=== PATIENT | female | born 1950 | race American Indian/Alaskan Native ===

== ENCOUNTER 2017-08-15 00:06 | Emergency (ER) | payer MEDICARE ==
[2017-08-15 00:06] VITALS: BMI 24.2
[2017-08-15 00:15] VITALS: PULSE 101; O2SAT 98
--- NOTE | 2017-08-15 01:07 | C.PDOC ---
History Of Present Illness 66yo female, presents to ER with complaints of chest pain and shortness of breath. Patient noted to be eating comfortably in room. She is also complaining of right ankle pain and swelling. No fever, chills, abdominal pain, numbness. No other complaints. Time Seen by Provider: 08/15/17 00:50 Chief Complaint (Nursing): Shortness Of Breath History Per: Patient History/Exam Limitations: no limitations Past Medical History Reviewed: Historical Data, Nursing Documentation, Vital Signs Vital Signs: Last Vital Signs Temp 98 F 08/15/17 00:09 Pulse 101 H 08/15/17 00:09 Resp 24 08/15/17 00:18 BP 114/76 08/15/17 00:09 Pulse Ox 98 08/15/17 03:16 - Medical History PMH: Anxiety, Arthritis, Asthma, Back Problems, Bronchitis, CAD, COPD, Dementia , Diabetes, Gastrointestinal Ulcer, HTN, Hyperthyroidism, Migraine, Pneumonia (), Sleep Apnea, TIA Denies: Chronic Kidney Disease Surgical History: Appendectomy (19 years old), Coronary Stent (1) - [facility] Procedures INSERTION OF TOTALLY IMPLANTABLE VASC ACCESS DEVIC (07/27/14) INTRODUCE OF OTH THERAP SUBST INTO RESP TRACT, VIA OPENING (06/19/16) LEFT HEART CARDIAC CATH (07/13/14) LT HEART ANGIOCARDIOGRAM (07/13/14) Family History: States: Unknown Family Hx - Social History Hx Tobacco Use: No Hx Alcohol Use: No Hx Substance Use: No - Immunization History Hx Tetanus Toxoid Vaccination: No Hx Influenza Vaccination: No Hx Pneumococcal Vaccination: Yes Review Of Systems Except As Marked, All Systems Reviewed And Found Negative. Constitutional: Negative for: Fever, Chills Cardiovascular: Positive for: Chest Pain Respiratory: Positive for: Shortness of Breath Gastrointestinal: Negative for: Abdominal Pain Musculoskeletal: Positive for: Foot Pain (ankle) Physical Exam - Physical Exam Appears: Non-toxic, No Acute Distress Skin: Normal Color, Warm, Dry Head: Atraumatic, Normacephalic Eye(s): bilateral: Normal Inspection Neck: Normal ROM, Supple Chest: Symmetrical Cardiovascular: Rhythm Regular, No Murmur Respiratory: Rales (occasional basal rales), No Wheezing Extremity: Normal ROM, No Tenderness, No Deformity, No Swelling Neurological/Psych: Oriented x3 ED Course And Treatment - Laboratory Results Result Diagrams: 08/15/17 01:15 08/15/17 01:15 ECG: Interpreted By Me, Viewed By Me ECG Interpretation: No Acute Changes Interpretation Of ECG: NSR, no acute changes, normal tracings Rate From EC O2 Sat by Pulse Oximetry: 98 (RA) Pulse Ox Interpretation: Normal - Radiology CXR: Interpreted by Me CXR Interpretation: Yes: No Acute Disease, Other (inc. broncho-vascularmarkings) . No: Infiltrates Medical Decision Making Medical Decision Making: Plan: -- Labs -- EKG -- CXR Time: 0300 EXAM: XR Chest, 2 Views CLINICAL HISTORY: 66 years old, female; Pain; Chest pain and other: Cough; Patient HX: 01-08-16; Additional info: SOB TECHNIQUE: Frontal and lateral views of the chest. COMPARISON: CR - CHEST TWO VIEWS (PA/LAT) 2016-01-08 15:45 FINDINGS: Lungs: No consolidation. Pleural space: No pleural effusion. No pneumothorax. Heart: No cardiomegaly. Mediastinum: Mild tortuosity of thoracic aorta. Bones/joints: No acute fracture. Tubes, lines and devices: Central venous catheter with tip projected over SVC. IMPRESSION: 1. No definite acute cardiopulmonary disease. If symptoms persist, consider CT for further evaluation. 2. Incidental/non-acute findings are described above. Disposition Counseled Patient/Family Regarding: Diagnosis - Disposition Referrals: [facility] [Outside] Disposition: HOME/ ROUTINE Disposition Time: 03:13 Condition: STABLE Prescriptions: Albuterol Sulfate [Proventil Hfa] 0.09 mg IH Q6 #1 spray Azithromycin [Zithromax] 250 mg PO DAILY #5 tab Forms: [employer] (Ecuadorean) - Clinical Impression Clinical Impression: Bronchitis, Asthma - Scribe Statement The provider has reviewed the documentation as recorded by the Scribe (Evelin Lares) Provider Attestation: All medical record entries made by the Scribe were at my direction and personally dictated by me. I have reviewed the chart and agree that the record accurately reflects my personal performance of the history, physical exam, medical decision making, and the department course for this patient. I have also personally directed, reviewed, and agree with the discharge instructions and disposition.
[2017-08-15] MEDS ORDERED: Promethazine/Cod 6.25mg-10mg/5ml Syr UD ONE (01:19)
[2017-08-15] MEDS ORDERED: Promethazine/Cod 6.25mg-10mg/5ml Syr UD PO STA (01:21)
[2017-08-15 01:23] LABS: BASO # 0.1 K/uL (0.0-0.2); BASO % 0.8 % (0.0-2.0); EOS # 0.1 K/uL (0.0-0.7); EOS % 0.8 % (0.0-4.0); HEMOGLOBIN 11.3 g/dL (11.0-16.0); LYMPH % 18.1 % (20.0-40.0); MEAN CELL VOLUME 87.6 fL (81.0-99.0); MEAN CORPUSCULAR HEMOGLOBIN 29.4 pg (27.0-31.0); MEAN CORPUSCULAR HGB CONC 33.6 g/dL (33.0-37.0); MEAN PLATELET VOLUME 8.8 fL (7.2-11.7); MONO # 0.8 K/uL (0.0-0.8); MONO % 7.8 % (0.0-10.0); NEUT # 7.9 K/uL (1.8-7.0); NEUT % 72.5 % (50.0-75.0); RBC 3.83 Mil/uL (3.80-5.20); RED CELL DISTRIBUTION WIDTH 14.3 % (11.5-14.5); WHITE BLOOD COUNT 10.8 K/uL (4.8-10.8)
[2017-08-15 01:44] LABS: ALB/GLOB RATIO 1.2 (1.0-2.1); ALBUMIN 3.6 g/dL (3.5-5.0); ALT/SGPT 53 U/L (9-52); AST/SGOT 34 U/L (14-36); BLOOD UREA NITROGEN 7 mg/dL (7-17); CALCIUM 8.8 mg/dl (8.6-10.4); GFR AFRICAN-AMERICAN > 60; GFR NON-AFRICAN AMERICAN > 60
--- NOTE | 2017-08-15 03:01 | RAD ---
EXAM: XR Chest, 2 Views CLINICAL HISTORY: 66 years old, female; Pain; Chest pain and other: Cough; Patient HX: 01-08-16; Additional info: SOB TECHNIQUE: Frontal and lateral views of the chest. COMPARISON: CR - CHEST TWO VIEWS (PA/LAT) 2016-01-08 15:45 FINDINGS: Lungs: No consolidation. Pleural space: No pleural effusion. No pneumothorax. Heart: No cardiomegaly. Mediastinum: Mild tortuosity of thoracic aorta. Bones/joints: No acute fracture. Tubes, lines and devices: Central venous catheter with tip projected over SVC. IMPRESSION: 1. No definite acute cardiopulmonary disease. If symptoms persist, consider CT for further evaluation. 2. Incidental/non-acute findings are described above.
[2017-08-15 03:34] VITALS: BP 120/70; RESP 20; TEMP 98.1
[2017-08-15] MEDS ORDERED: Sucralfate 1 gm/10 ml Oral Susp UD PO STA (03:37)
[2017-08-15] MEDS ORDERED: Sucralfate 1 gm/10 ml Oral Susp UD ONE (03:48)
[2017-08-15 03:54] LABS: SQUAMOUS EPITHIAL 2 /hpf (0-5); URINE BACTERIA FEW (<OCC); URINE BILIRUBIN NEGATIVE (NEGATIVE); URINE CLARITY Hazy (Clear); URINE COLOR Colorless (YELLOW); URINE GLUCOSE (UA) 3+ mg/dL (Normal); URINE LEUKOCYTE ESTERASE 3+ Leu/uL (Negative); URINE NITRATE NEGATIVE (NEGATIVE); URINE PROTEIN NEGATIVE (NEGATIVE); URINE UROBILINOGEN NORMAL mg/dL (0.2-1.0)
[2017-08-15 03:56] LABS: URINE BLOOD 1+ (NEGATIVE)
== END 2017-08-15 03:56 | disposition home or self-care (01) ==
LOC: C.ER 00:06
DX: J45.909 Unspecified asthma, uncomplicated (principal); I10 Essential (primary) hypertension; E11.9 Type 2 diabetes mellitus without complications; Z87.01 Personal history of pneumonia (recurrent); Z87.891 Personal history of nicotine dependence

== ENCOUNTER 2018-08-23 14:41 | Observation (INO) | payer MEDICARE, MEDICAID ==
[2018-08-23 14:41] VITALS: BMI 24.2
--- NOTE | 2018-08-23 15:59 | C.PDOC ---
History Of Present Illness 67 y/o female, with history of IDDM, comes in complaining of bilateral leg pain for the past 5 days. States she's had this pain before that would usually last 15 minutes but this one lasted for 2 hours. Patient reports she was seen by Dr. Schumacher for the leg pain and got an arterial doppler done on 08/18/18 with no known results. She states she takes her medications for her diabetes. Reports taking flexeril for the pain with no relief. Patient also complains of palpitations for the last 3 days but denies any chest pain or SOB. Also has history of COPD, CAD with stent, unknown cancer, neuropathy, and asthma. Time Seen by Provider: 08/23/18 15:24 Chief Complaint (Nursing): Palpitations History Per: Patient History/Exam Limitations: no limitations Onset/Duration Of Symptoms: Days Current Symptoms Are (Timing): Still Present Past Medical History Reviewed: Historical Data, Nursing Documentation, Vital Signs Vital Signs: Last Vital Signs Temp 98.5 F 08/23/18 14:57 Pulse 105 H 08/23/18 14:57 Resp 20 08/23/18 14:57 BP 118/72 08/23/18 14:57 Pulse Ox 98 08/23/18 14:57 - Medical History PMH: Anxiety, Arthritis, Asthma, Back Problems, Bronchitis, CAD, COPD, Dementia, Diabetes, Gastrointestinal Ulcer, HTN (pt denies), Hyperthyroidism, Hypothyroidism, Migraine, Pneumonia, Sleep Apnea, TIA Denies: Chronic Kidney Disease Surgical History: Appendectomy, Coronary Stent (1) - [facility] Procedures INSERTION OF TOTALLY IMPLANTABLE VASC ACCESS DEVIC (07/27/14) INTRODUCE OF OTH THERAP SUBST INTO RESP TRACT, VIA OPENING (06/19/16) LEFT HEART CARDIAC CATH (07/13/14) LT HEART ANGIOCARDIOGRAM (07/13/14) Family History: States: No Known Family Hx - Social History Hx Tobacco Use: No Hx Alcohol Use: No Hx Substance Use: No - Immunization History Hx Tetanus Toxoid Vaccination: (unk) Hx Influenza Vaccination: No Hx Pneumococcal Vaccination: Yes Review Of Systems Constitutional: Negative for: Fever, Chills Cardiovascular: Positive for: Palpitations. Negative for: Chest Pain Respiratory: Negative for: Shortness of Breath Gastrointestinal: Negative for: Nausea, Vomiting, Diarrhea Genitourinary: Negative for: Dysuria, Hematuria Musculoskeletal: Positive for: Leg Pain (Right). Negative for: Back Pain Neurological: Negative for: Weakness, Numbness Physical Exam - Physical Exam Appears: Non-toxic, No Acute Distress Skin: Warm, Dry Head: Atraumatic, Normacephalic Eye(s): bilateral: PERRL, EOMI Oral Mucosa: Moist Neck: Supple Cardiovascular: Rhythm Regular, No Murmur Respiratory: No Rales, No Rhonchi, No Wheezing, Other (bibasilar crackles) Gastrointestinal/Abdominal: Soft, No Tenderness Extremity: Normal ROM (full ROM of both legs), Tenderness (tenderness to bilateral upper thighs), No Pedal Edema, No Calf Tenderness, No Swelling, Other (no redness or warmth of thighs) Pulses: Left Femoral: Normal, Right Femoral: Normal, Left Dorsalis Pedis: N ormal, Right Dorsalis Pedis: Normal Neurological/Psych: Oriented x3, Normal Speech, Normal Cognition, Normal Motor, Normal Sensation ED Course And Treatment - Laboratory Results Result Diagrams: 08/23/18 16:14 08/23/18 16:14 ECG: Interpreted By Me, Viewed By Me ECG Rhythm: Sinus Rhythm Interpretation Of ECG: Voltage criteria for left ventricular hypertrophy. Rate From EC O2 Sat by Pulse Oximetry: 98 (RA) Pulse Ox Interpretation: Normal - Other Rad CXR X-Ray: Read By Radiologist Interpretation: IMPRESSION: No active disease. Medical Decision Making Medical Decision Making: Plan: --EKG --Labs --Chest XR --UA Patient intermittently moaning and crying in pain, laying comfortably in stretcher and in no distress. [id number] Silvia Schumacher to call ED. [address] Schumacher; pt may be admitted to Dr Rian Lemons discussedf with Rian Lemons, will admit pt to his service Disposition Discussed With : Jg Lemons Doctor Will See Patient In The: Hospital - Disposition Disposition: HOSPITALIZED Disposition Time: 18:26 Condition: GOOD Forms: [facility] (Cook Islander) - Clinical Impression Clinical Impression: Leg pain, bilateral, Decreased ambulation status - PA / ART GILDER / Resident Statement MD/DO has reviewed & agrees with the documentation as recorded. - Scribe Statement The provider has reviewed the documentation as recorded by the Scribe Lisa Daus All medical record entries made by the Scribe were at my direction and personally dictated by me. I have reviewed the chart and agree that the record accurately reflects my personal performance of the history, physical exam, medical decision making, and the department course for this patient. I have also personally directed, reviewed, and agree with the discharge instructions and disposition.
[2018-08-23 16:23] LABS: BASO # 0.1 K/uL (0.0-0.2); BASO % 0.4 % (0.0-2.0); HEMOGLOBIN 13.6 g/dL (11.0-16.0); LYMPH # 4.5 K/uL (1.0-4.3); LYMPH % 37.5 % (20.0-40.0); MEAN CELL VOLUME 87.5 fL (81.0-99.0); MEAN CORPUSCULAR HEMOGLOBIN 28.7 pg (27.0-31.0); MEAN CORPUSCULAR HGB CONC 32.7 g/dL (33.0-37.0); MEAN PLATELET VOLUME 10.5 fL (7.2-11.7); MONO # 1.3 K/uL (0.0-0.8); NEUT # 6.1 K/uL (1.8-7.0); NEUT % 51.1 % (50.0-75.0); NRBC % 0.1 % (0.0-2.0); RBC 4.76 Mil/uL (3.80-5.20); RED CELL DISTRIBUTION WIDTH 12.6 % (11.5-14.5); WHITE BLOOD COUNT 11.9 K/uL (4.8-10.8)
[2018-08-23 16:30] LABS: ALB/GLOB RATIO 1.5 (1.0-2.1); ALBUMIN 4.1 g/dL (3.5-5.0); ALT/SGPT 18 U/L (9-52); AST/SGOT 22 U/L (14-36); BLOOD UREA NITROGEN 17 mg/dL (7-17); CALCIUM 8.8 mg/dl (8.6-10.4); GFR NON-AFRICAN AMERICAN > 60
[2018-08-23 16:36] LABS: INR 1.2; PROTHROMBIN TIME 13.2 SECONDS (9.7-12.2)
[2018-08-23 16:42] LABS: B-TYPE NATRIURETIC PEPTIDE 15.9 pg/mL (0-900)
[2018-08-23 16:48] LABS: D DIMER < 200 ng/mlDDU (0-243)
[2018-08-23] MEDS ORDERED: Potassium Chloride 20 mEq ER Tab PO STA (17:06)
[2018-08-23] MEDS ORDERED: Potassium Chloride 20 mEq ER Tab PO ONE (17:18)
--- NOTE | 2018-08-23 17:27 | RAD ---
Date of service: 08/23/2018 HISTORY: SOB COMPARISON: Comparison is made with 04/14/2018 TECHNIQUE: Chest PA and lateral FINDINGS: LUNGS: No evidence of new infiltrate or consolidation in the lungs. PLEURA: No significant pleural effusion identified. No pneumothorax apparent. CARDIOVASCULAR: No aortic atherosclerotic calcification present. Normal cardiac size. No pulmonary vascular congestion. OSSEOUS STRUCTURES: No significant abnormalities. VISUALIZED UPPER ABDOMEN: Normal. OTHER FINDINGS: Right-sided Infusaport is seen in place. IMPRESSION: No active disease.
[2018-08-23 18:30] LABS: INR 1.2; PROTHROMBIN TIME 12.6 SECONDS (9.7-12.2)
--- NOTE | 2018-08-23 19:30 | CP.PCM.HP ---
Past Patient History - Infectious Disease Hx of Infectious Diseases: None - Past Medical History & Family History Past Medical History?: Yes - Past Social History Smoking Status: Former Smoker - CARDIAC Hx Hypertension: Yes (pt denies) - PULMONARY Hx Asthma: Yes Hx Bronchitis: Yes Hx Chronic Obstructive Pulmonary Disease (COPD): Yes Hx Pneumonia: Yes Hx Sleep Apnea: Yes - NEUROLOGICAL Hx Dementia: Yes Hx Migraine: Yes Hx Transient Ischemic Attacks (TIA): Yes - HEENT Hx HEENT Problems: Yes Hx Cataracts: Yes - RENAL Hx Chronic Kidney Disease: No - ENDOCRINE/METABOLIC Hx Hyperthyroidism: Yes Hx Hypothyroidism: Yes - HEMATOLOGICAL/ONCOLOGICAL Hx Blood Disorders: Yes Hx Cancer: Yes Hx Leukemia: Yes Other/Comment: "I have cancer in by blood. They don't know what kind." - INTEGUMENTARY Hx Dermatological Problems: No - MUSCULOSKELETAL/RHEUMATOLOGICAL Hx Arthritis: Yes - GASTROINTESTINAL Other/Comment: Hiatal hernia - GENITOURINARY/GYNECOLOGICAL Hx Genitourinary Disorders: No - PSYCHIATRIC Hx Anxiety: Yes Hx Substance Use: No - SURGICAL HISTORY Hx Appendectomy: Yes Hx Coronary Stent: Yes (1) - ANESTHESIA Hx Anesthesia: Yes Hx Anesthesia Reactions: No Hx Malignant Hyperthermia: No Meds Allergies/Adverse Reactions: Allergies Allergy/AdvReac Type Severity Reaction Status Date / Time No Known Allergies Allergy Verified 08/23/18 15:01 Physical Exam - Constitutional Appears: Well - Head Exam Head Exam: ATRAUMATIC, NORMAL INSPECTION, NORMOCEPHALIC - Eye Exam Eye Exam: EOMI, Normal appearance, PERRL Pupil Exam: NORMAL ACCOMODATION, PERRL - ENT Exam ENT Exam: Mucous Membranes Moist, Normal Exam - Neck Exam Neck exam: Positive for: Normal Inspection - Respiratory Exam Respiratory Exam: Decreased Breath Sounds - Cardiovascular Exam Cardiovascular Exam: REGULAR RHYTHM, +S1, +S2 - GI/Abdominal Exam GI & Abdominal Exam: Diminished Bowel Sounds, Soft - Rectal Exam Rectal Exam: Deferred Results - Vital Signs Recent Vital Signs: Last Vital Signs Temp 97.6 F 08/23/18 18:08 Pulse 80 08/23/18 18:08 Resp 16 08/23/18 18:08 BP 111/69 08/23/18 18:08 Pulse Ox 98 08/23/18 18:28 - Labs Result Diagrams: 08/23/18 16:14 08/23/18 16:14 Labs: Laboratory Results - last 24 hr 08/23/18 08/23/18 08/23/18 16:14 16:14 16:14 WBC 11.9 H RBC 4.76 Hgb 13.6 Hct 41.6 MCV 87.5 MCH 28.7 MCHC 32.7 L RDW 12.6 Plt Count 222 MPV 10.5 Neut % (Auto) 51.1 Lymph % (Auto) 37.5 Geary % (Auto) 11.0 H Eos % (Auto) 0.0 Baso % (Auto) 0.4 Neut # (Auto) 6.1 Lymph # (Auto) 4.5 H Geary # (Auto) 1.3 H Eos # (Auto) 0.0 Baso # (Auto) 0.1 PT 13.2 H INR 1.2 APTT Cancelled D-Dimer, Quantitative < 200 Sodium 135 Potassium 3.2 L Chloride 98 Carbon Dioxide 31 H Anion Gap 9 L BUN 17 Creatinine 0.4 L Est GFR ( Amer) > 60 Est GFR (Non-Af Amer) > 60 Random Glucose 71 D Calcium 8.8 Magnesium Total Bilirubin 0.3 AST 22 ALT 18 Alkaline Phosphatase 93 Total Creatine Kinase Troponin I < 0.0120 NT-Pro-B Natriuret Pep 15.9 Total Protein 6.8 Albumin 4.1 Globulin 2.7 Albumin/Globulin Ratio 1.5 TSH 3rd Generation 0.90 08/23/18 08/23/18 08/23/18 17:03 17:24 18:20 WBC RBC Hgb Hct MCV MCH MCHC RDW Plt Count MPV Neut % (Auto) Lymph % (Auto) Geary % (Auto) Eos % (Auto) Baso % (Auto) Neut # (Auto) Lymph # (Auto) Geary # (Auto) Eos # (Auto) Baso # (Auto) PT 12.6 H INR 1.2 APTT 135 H* 61 H D D-Dimer, Quantitative Sodium Potassium Chloride Carbon Dioxide Anion Gap BUN Creatinine Est GFR ( Amer) Est GFR (Non-Af Amer) Random Glucose Calcium Magnesium 1.9 Total Bilirubin AST ALT Alkaline Phosphatase Total Creatine Kinase 122 Troponin I NT-Pro-B Natriuret Pep Total Protein Albumin Globulin Albumin/Globulin Ratio TSH 3rd Generation
[2018-08-23] MEDS: (Novolog) Insulin Aspart, Recombinant 100 u/ml 10 ml vial SC SCH (21:49)
[2018-08-24] MEDS: Albuterol 0.083% Inhal Sol (2.5 mg/3 mL) UD INH SCH ×5 (00:12→23:44)
[2018-08-24 00:58] VITALS: RESP 20
[2018-08-24] MEDS: HYDROmorphone 0.5 mg/0.5 ml ISec IVP PRN ×2 (02:32→14:07)
[2018-08-24 02:50] LABS: SQUAMOUS EPITHIAL 1 /hpf (0-5); URINE BACTERIA RARE (<OCC); URINE BILIRUBIN NEGATIVE (NEGATIVE); URINE BLOOD NEGATIVE (NEGATIVE); URINE CLARITY Hazy (Clear); URINE COLOR Yellow (YELLOW); URINE GLUCOSE (UA) 3+ mg/dL (Normal); URINE LEUKOCYTE ESTERASE 1+ Leu/uL (Negative); URINE PROTEIN NEGATIVE (NEGATIVE); URINE UROBILINOGEN NORMAL mg/dL (0.2-1.0)
[2018-08-24 07:49] LABS: INR 1.1; PROTHROMBIN TIME 12.3 SECONDS (9.7-12.2)
[2018-08-24 07:55] LABS: ALB/GLOB RATIO 1.3 (1.0-2.1); ALBUMIN 3.3 g/dL (3.5-5.0); ALT/SGPT 22 U/L (9-52); AST/SGOT 28 U/L (14-36); BLOOD UREA NITROGEN 17 mg/dL (7-17); CALCIUM 8.2 mg/dl (8.6-10.4); GFR NON-AFRICAN AMERICAN > 60
[2018-08-24 08:07] LABS: BASO % 0.3 % (0.0-2.0); LYMPH # 2.7 K/uL (1.0-4.3); LYMPH % 36.5 % (20.0-40.0); MEAN CELL VOLUME 88.8 fL (81.0-99.0); MEAN CORPUSCULAR HEMOGLOBIN 28.8 pg (27.0-31.0); MEAN CORPUSCULAR HGB CONC 32.4 g/dL (33.0-37.0); MEAN PLATELET VOLUME 11.3 fL (7.2-11.7); MONO # 0.7 K/uL (0.0-0.8); MONO % 8.8 % (0.0-10.0); NEUT # 4.1 K/uL (1.8-7.0); NEUT % 54.4 % (50.0-75.0); RBC 4.52 Mil/uL (3.80-5.20); RED CELL DISTRIBUTION WIDTH 12.5 % (11.5-14.5); WHITE BLOOD COUNT 7.5 K/uL (4.8-10.8)
[2018-08-24] MEDS: (Novolog) Insulin Aspart, Recombinant 100 u/ml 10 ml vial SC SCH ×4 (08:29→21:28)
[2018-08-24] MEDS: Pantoprazole 40 mg EC Tab PO SCH (10:01)
[2018-08-24] MEDS: Enoxaparin 40 mg Syringe SC SCH (10:02)
[2018-08-24] MEDS: Magnesium Oxide 400 mg Tab UD PO SCH (15:03)
--- NOTE | 2018-08-24 16:28 | CON ---
DATE: 08/24/2018 NEUROLOGY CONSULTATION CHIEF COMPLAINT: Bilateral leg pain. HISTORY OF PRESENT ILLNESS: This is a 67-year-old woman with history of insulin dependent diabetes mellitus, history of severe sensorimotor peripheral neuropathy, came in for complaint of bilateral leg pain for the past five days. She states that the pain was intense and lasting for a few hours. She got arterial Doppler done on 08/18/[address] Schumacher, but unknown the results. Currently she is doing much better. No focal weakness of lower extremities. She still has some hyperglycemic accelerations. She takes Lyrica by her neurologist Dr. Burrows 150 mg p.o. b.i.d. Cymbalta 30 mg p.o. at bedtime as an outpatient once she follows up with him. No focal weakness of lower extremities. She has evidence of neuropathy under examination. PAST MEDICAL HISTORY: History of insulin dependent diabetes mellitus, dyslipidemia and hypertension. ALLERGIES: NO KNOWN DRUG ALLERGIES. SOCIAL HISTORY: Former smoker. No illicit drug abuse or ETOH abuse. REVIEW OF SYSTEMS: A 14-point review of system is negative except for the HPI. FAMILY HISTORY: Noncontributory. LABORATORY DATA: Sodium is 135, potassium 4, chloride 102, carbon dioxide 27, BUN of 9, creatinine 0.5, random glucose 283. PHYSICAL EXAMINATION: VITAL SIGNS: Temperature 98.4, pulse rate of 89, blood pressure 122/75, respiratory rate of 20, and oxygen saturation % on room air. GENERAL: The patient is sitting up in bed. No acute distress. HEENT: Atraumatic, normocephalic, PERRLA. Extraocular muscles intact. NECK: Supple, no JVD, no adenopathy noted. LUNGS: Clear to auscultation. No adventitious sounds. HEART: S1, S2, normal rate and rhythm. No murmurs, rubs or gallops. ABDOMEN: Soft, nontender, and nondistended. Bowel sounds are present. EXTREMITIES: No clubbing, no cyanosis. Peripheral pulses 2+ felt bilaterally. NEUROLOGIC: The patient is alert, oriented to person, place, month, and year. Speech is fluent without any errors. Cranial nerves II through XII are intact. Motor exam: Moves all extremities equally. Toes are downgoing bilaterally. Sensory exam: Light touch, pinprick, proprioception and vibration are intact. DTRs are 2+ throughout both knees and ankles. Coordination and gait are deferred for now. IMPRESSION: Bilateral knee leg pain secondary to severe diabetic peripheral neuropathy, sensorimotor type. PLAN: Recommend. 1. To continue her home dose Lyrica 150 mg p.o. twice daily as given by her neurologist Dr. Burrows. 2. Consider Cymbalta in addition 20 mg p.o. h.s. once she decides as an outpatient. 3. Magnesium 400 mg p.o. daily, which will help with paresthesia of the feet and continue with current workup. Thank you for this consult. Naeem Alvarez MD
--- NOTE | 2018-08-24 20:12 | CP.PCM.PN ---
Subjective - Date & Time of Evaluation Date of Evaluation: 08/24/18 Time of Evaluation: 08:30 - Subjective Subjective: clinically same Objective - Vital Signs/Intake and Output Vital Signs (last 24 hours): Temp Pulse Resp BP Pulse Ox 98.2 F 83 20 101/62 99 08/24/18 15:00 08/24/18 15:00 08/24/18 15:00 08/24/18 15:00 08/24/18 15:00 Intake and Output: 08/24/18 08/25/18 18:59 06:59 Intake Total 480 Balance 480 - Medications Medications: Current Medications Albuterol Sulfate (Albuterol 0.083% Inhal Sharon (2.5 Mg/3 Ml) Ud) 2.5 mg INH Q4 [facility] Last Admin: 08/24/18 19:50 Dose: 2.5 mg Aspirin (Aspirin) 325 mg PO DAILY [facility] Last Admin: 08/24/18 10:01 Dose: 325 mg Clopidogrel Bisulfate (Plavix) 75 mg PO DAILY [facility] Last Admin: 08/24/18 10:01 Dose: 75 mg Cyclobenzaprine HCl (Flexeril) 10 mg PO DAILY [facility] Last Admin: 08/24/18 10:01 Dose: 10 mg Donepezil HCl (Aricept) 10 mg PO HS [facility] Last Admin: 08/23/18 21:56 Dose: 10 mg Enalapril Maleate (Vasotec) 10 mg PO BID [facility] Last Admin: 08/24/18 10:02 Dose: 10 mg Enoxaparin Sodium (Lovenox) 40 mg SC DAILY [facility] Last Admin: 08/24/18 10:02 Dose: 40 mg Hydromorphone HCl (Dilaudid) 0.5 mg IVP Q8 PRN PRN Reason: Pain, moderate (4-7) Last Admin: 08/24/18 14:07 Dose: 0.5 mg Influenza Virus Vaccine (Flucelvax Quad [id number] Syr) 60 mcg IM .ONCE ONE Stop: 08/25/18 10:01 Insulin Aspart (Novolog) 0 unit SC [facility]; Protocol Last Admin: 08/24/18 17:43 Dose: 3 units Magnesium Oxide (Mag-Ox) 400 mg PO DAILY [facility] Last Admin: 08/24/18 15:03 Dose: 400 mg Montelukast Sodium (Singulair) 10 mg PO [facility] Last Admin: 08/23/18 21:56 Dose: 10 mg Pantoprazole Sodium (Protonix Ec Tab) 40 mg PO DAILY [facility] Last Admin: 08/24/18 10:01 Dose: 40 mg Pneumococcal Polyvalent Vaccine (Pneumovax 23 Vaccine) 0.5 ml IM .ONCE ONE Stop: 08/26/18 10:01 Pregabalin (Lyrica) 75 mg PO BID [facility] Last Admin: 08/24/18 17:42 Dose: 75 mg - Labs Labs: 08/24/18 07:30 08/24/18 07:30 PT 12.3 SECONDS (9.7-12.2) H 08/24/18 07:30 INR 1.1 08/24/18 07:30 APTT 73 SECONDS (21-34) H D 08/24/18 07:30 - Constitutional Appears: Well - Head Exam Head Exam: ATRAUMATIC, NORMAL INSPECTION, NORMOCEPHALIC - Eye Exam Eye Exam: EOMI, Normal appearance, PERRL Pupil Exam: NORMAL ACCOMODATION, PERRL - ENT Exam ENT Exam: Mucous Membranes Moist, Normal Exam - Neck Exam Neck Exam: Full ROM, Normal Inspection. absent: Lymphadenopathy - Respiratory Exam Respiratory Exam: Decreased Breath Sounds - Cardiovascular Exam Cardiovascular Exam: REGULAR RHYTHM, +S1, +S2 - GI/Abdominal Exam GI & Abdominal Exam: Soft, Diminished Bowel Sounds - Rectal Exam Rectal Exam: Deferred
--- NOTE | 2018-08-24 22:40 | CP.PCM.CON ---
History of Present Illness - History of Present Illness History of Present Illness: 67 year old female with a history of tobacco abuse, chronically elevated CEA, HTN, DM complicated by peripheral neuropathy, admitted with lower extremity pain. The patient notes to chronic b/l LE pain which worsened over the last few days. She was unable to take the pain and came to the hospital. In regards to her elevated CEA, her work up included a negative PET CT scan in 2018. Her elevated CEA was felt to be related to tobacco abuse. Past medical history: tobacco abuse, chronically elevated CEA, HTN, DM complicated by peripheral neuropathy. Past surgical history: Carpel tunnel surgery Family history: Denies hematologic and oncologic problems Social history: +tobacco abuse Allergies: NKA Review of systems: All remaining review of systems including HEENT, cardiovascular, respiratory, gastrointestinal, genitourinary, musculoskeletal, dermatologic, neurologic, and psychiatric are negative unless mentioned in the HPI. Past Patient History - Infectious Disease Hx of Infectious Diseases: None - Past Medical History & Family History Past Medical History?: Yes - Past Social History Smoking Status: Former Smoker - CARDIAC Hx Hypertension: Yes (pt denies) - PULMONARY Hx Chronic Obstructive Pulmonary Disease (COPD): Yes - NEUROLOGICAL Hx Dementia: Yes Hx Migraine: Yes Hx Transient Ischemic Attacks (TIA): Yes - HEENT Hx HEENT Problems: Yes Hx Cataracts: Yes - RENAL Hx Chronic Kidney Disease: No - ENDOCRINE/METABOLIC Hx Hypothyroidism: Yes - HEMATOLOGICAL/ONCOLOGICAL Hx Blood Disorders: Yes Hx Cancer: Yes Hx Leukemia: Yes Other/Comment: "I have cancer in by blood. They don't know what kind." - INTEGUMENTARY Hx Dermatological Problems: No - MUSCULOSKELETAL/RHEUMATOLOGICAL Hx Arthritis: Yes - GASTROINTESTINAL Other/Comment: Hiatal hernia - GENITOURINARY/GYNECOLOGICAL Hx Genitourinary Disorders: No - PSYCHIATRIC Hx Anxiety: Yes Hx Substance Use: No - SURGICAL HISTORY Hx Appendectomy: Yes Hx Coronary Stent: Yes (1) - ANESTHESIA Hx Anesthesia: Yes Hx Anesthesia Reactions: No Hx Malignant Hyperthermia: No Meds Allergies/Adverse Reactions: Allergies Allergy/AdvReac Type Severity Reaction Status Date / Time No Known Allergies Allergy Verified 08/23/18 15:01 - Medications Medications: Current Medications Albuterol Sulfate (Albuterol 0.083% Inhal Sharon (2.5 Mg/3 Ml) Ud) 2.5 mg INH Q4 [facility] Last Admin: 08/24/18 19:50 Dose: 2.5 mg Aspirin (Aspirin) 325 mg PO DAILY [facility] Last Admin: 08/24/18 10:01 Dose: 325 mg Clopidogrel Bisulfate (Plavix) 75 mg PO DAILY [facility] Last Admin: 08/24/18 10:01 Dose: 75 mg Cyclobenzaprine HCl (Flexeril) 10 mg PO DAILY [facility] Last Admin: 08/24/18 10:01 Dose: 10 mg Donepezil HCl (Aricept) 10 mg PO [facility] Last Admin: 08/24/18 21:28 Dose: 10 mg Enalapril Maleate (Vasotec) 10 mg PO BID [facility] Last Admin: 08/24/18 10:02 Dose: 10 mg Enoxaparin Sodium (Lovenox) 40 mg SC DAILY [facility] Last Admin: 08/24/18 10:02 Dose: 40 mg Hydromorphone HCl (Dilaudid) 0.5 mg IVP Q8 PRN PRN Reason: Pain, moderate (4-7) Last Admin: 08/24/18 14:07 Dose: 0.5 mg Influenza Virus Vaccine (Flucelvax Quad [id number] Syr) 60 mcg IM .ONCE ONE Stop: 08/25/18 10:01 Insulin Aspart (Novolog) 0 unit SC [facility]; Protocol Last Admin: 08/24/18 21:28 Dose: Not Given Magnesium Oxide (Mag-Ox) 400 mg PO DAILY [facility] Last Admin: 08/24/18 15:03 Dose: 400 mg Montelukast Sodium (Singulair) 10 mg PO [facility] Last Admin: 08/24/18 21:28 Dose: 10 mg Pantoprazole Sodium (Protonix Ec Tab) 40 mg PO DAILY [facility] Last Admin: 08/24/18 10:01 Dose: 40 mg Pneumococcal Polyvalent Vaccine (Pneumovax 23 Vaccine) 0.5 ml IM .ONCE ONE Stop: 08/26/18 10:01 Pregabalin (Lyrica) 75 mg PO BID [facility] Last Admin: 08/24/18 17:42 Dose: 75 mg Physical Exam - Head Exam Head Exam: ATRAUMATIC - Eye Exam Eye Exam: Normal appearance - ENT Exam ENT Exam: Mucous Membranes Dry - Respiratory Exam Respiratory Exam: NORMAL BREATHING PATTERN - Cardiovascular Exam Cardiovascular Exam: +S1, +S2 - GI/Abdominal Exam GI & Abdominal Exam: Normal Bowel Sounds - Neurological Exam Neurological exam: Oriented x3 - Psychiatric Exam Psychiatric exam: Normal Affect, Normal Mood - Skin Skin Exam: Warm Results - Vital Signs Recent Vital Signs: Last Vital Signs Temp 98.2 F 08/24/18 15:00 Pulse 83 08/24/18 15:00 Resp 20 08/24/18 15:00 BP 101/62 08/24/18 15:00 Pulse Ox 99 08/24/18 15:00 - Labs Result Diagrams: 08/24/18 07:30 08/24/18 07:30 Labs: Laboratory Results - last 24 hr 08/23/18 08/24/18 08/24/18 16:05 07:08 07:30 WBC 7.5 RBC 4.52 Hgb 13.0 Hct 40.2 MCV 88.8 MCH 28.8 MCHC 32.4 L RDW 12.5 Plt Count 199 MPV 11.3 Neut % (Auto) 54.4 Lymph % (Auto) 36.5 [place] % (Auto) 8.8 Eos % (Auto) 0.0 Baso % (Auto) 0.3 Neut # (Auto) 4.1 Lymph # (Auto) 2.7 [place] # (Auto) 0.7 Eos # (Auto) 0.0 Baso # (Auto) 0.0 PT INR APTT Sodium Potassium Chloride Carbon Dioxide Anion Gap BUN Creatinine Est GFR ( Amer) Est GFR (Non-Af Amer) POC Glucose (mg/dL) 324 H Random Glucose Calcium Total Bilirubin AST ALT Alkaline Phosphatase Total Protein Albumin Globulin Albumin/Globulin Ratio Urine Color Yellow Urine Clarity Hazy Urine pH 6.0 Ur Specific [place] 1.020 Urine Protein Negative Urine Glucose (UA) 3+ H Urine Ketones Negative Urine Blood Negative Urine Nitrate Negative Urine Bilirubin Negative Urine Urobilinogen Normal Ur Leukocyte Esterase 1+ H Urine WBC (Auto) 5 Urine RBC (Auto) 1 Ur Squamous Epith Cells 1 Urine Bacteria Rare Hyaline Casts 3-5 H 08/24/18 08/24/18 08/24/18 07:30 07:30 11:03 WBC RBC Hgb Hct MCV MCH MCHC RDW Plt Count MPV Neut % (Auto) Lymph % (Auto) [place] % (Auto) Eos % (Auto) Baso % (Auto) Neut # (Auto) Lymph # (Auto) [place] # (Auto) Eos # (Auto) Baso # (Auto) PT 12.3 H INR 1.1 APTT 73 H D Sodium 135 Potassium 4.0 Chloride 102 Carbon Dioxide 27 Anion Gap 9 L BUN 17 Creatinine 0.5 L Est GFR ( Amer) > 60 Est GFR (Non-Af Amer) > 60 POC Glucose (mg/dL) 179 H Random Glucose 283 H D Calcium 8.2 L Total Bilirubin 0.5 AST 28 ALT 22 Alkaline Phosphatase 81 Total Protein 5.7 L Albumin 3.3 L Globulin 2.4 Albumin/Globulin Ratio 1.3 Urine Color Urine Clarity Urine pH Ur Specific [place] Urine Protein Urine Glucose (UA) Urine Ketones Urine Blood Urine Nitrate Urine Bilirubin Urine Urobilinogen Ur Leukocyte Esterase Urine WBC (Auto) Urine RBC (Auto) Ur Squamous Epith Cells Urine Bacteria Hyaline Casts 08/24/18 08/24/18 15:55 21:06 WBC RBC Hgb Hct MCV MCH MCHC RDW Plt Count MPV Neut % (Auto) Lymph % (Auto) [place] % (Auto) Eos % (Auto) Baso % (Auto) Neut # (Auto) Lymph # (Auto) [place] # (Auto) Eos # (Auto) Baso # (Auto) PT INR APTT Sodium Potassium Chloride Carbon Dioxide Anion Gap BUN Creatinine Est GFR ( Amer) Est GFR (Non-Af Amer) POC Glucose (mg/dL) 280 H 294 H Random Glucose Calcium Total Bilirubin AST ALT Alkaline Phosphatase Total Protein Albumin Globulin Albumin/Globulin Ratio Urine Color Urine Clarity Urine pH Ur Specific [place] Urine Protein Urine Glucose (UA) Urine Ketones Urine Blood Urine Nitrate Urine Bilirubin Urine Urobilinogen Ur Leukocyte Esterase Urine WBC (Auto) Urine RBC (Auto) Ur Squamous Epith Cells Urine Bacteria Hyaline Casts Assessment & Plan (1) Elevated CEA Assessment and Plan: PET CT in 2018 negative EGD/colonoscopy negative repeat CEA suspect related to tobacco abuse Thank you for this interesting consult. Status: Acute
[2018-08-25] MEDS: HYDROmorphone 0.5 mg/0.5 ml ISec IVP PRN ×2 (00:03→11:12)
[2018-08-25] MEDS: Albuterol 0.083% Inhal Sol (2.5 mg/3 mL) UD INH SCH ×4 (04:00→16:20)
[2018-08-25 07:49] VITALS: TEMP 98.1
[2018-08-25] MEDS: (Novolog) Insulin Aspart, Recombinant 100 u/ml 10 ml vial SC SCH ×2 (07:55→17:35)
[2018-08-25] MEDS: Pantoprazole 40 mg EC Tab PO SCH (09:55)
[2018-08-25] MEDS: Magnesium Oxide 400 mg Tab UD PO SCH (09:56)
[2018-08-25] MEDS: Enoxaparin 40 mg Syringe SC SCH (09:57)
[2018-08-25] MEDS ORDERED: Influenza Vaccine 60 mcg/0.5 mL SYR (4YR UP) IM ONE (10:00)
[2018-08-25] MEDS ORDERED: Bisacodyl 5mg EC Tab PO ONE (12:00)
--- NOTE | 2018-08-25 14:56 | CP.PCM.PN ---
Subjective - Date & Time of Evaluation Date of Evaluation: 08/25/18 Time of Evaluation: 08:15 - Subjective Subjective: clinically same Objective - Vital Signs/Intake and Output Vital Signs (last 24 hours): Temp Pulse Resp BP Pulse Ox 98.1 F 99 H 20 102/70 98 08/25/18 07:46 08/25/18 07:46 08/25/18 07:46 08/25/18 09:56 08/25/18 07:46 Intake and Output: 08/25/18 08/25/18 06:59 18:59 Intake Total 550 Balance 550 - Medications Medications: Current Medications Albuterol Sulfate (Albuterol 0.083% Inhal Sharon (2.5 Mg/3 Ml) Ud) 2.5 mg INH Q4 [facility] Last Admin: 08/25/18 11:49 Dose: 2.5 mg Aspirin (Aspirin) 325 mg PO DAILY [facility] Last Admin: 08/25/18 09:56 Dose: 325 mg Clopidogrel Bisulfate (Plavix) 75 mg PO DAILY [facility] Last Admin: 08/25/18 09:55 Dose: 75 mg Cyclobenzaprine HCl (Flexeril) 10 mg PO DAILY [facility] Last Admin: 08/25/18 09:56 Dose: 10 mg Donepezil HCl (Aricept) 10 mg PO HS [facility] Last Admin: 08/24/18 21:28 Dose: 10 mg Enalapril Maleate (Vasotec) 10 mg PO BID [facility] Last Admin: 08/25/18 09:56 Dose: 10 mg Enoxaparin Sodium (Lovenox) 40 mg SC DAILY [facility] Last Admin: 08/25/18 09:57 Dose: 40 mg Hydromorphone HCl (Dilaudid) 0.5 mg IVP Q8 PRN PRN Reason: Pain, moderate (4-7) Last Admin: 08/25/18 11:12 Dose: 0.5 mg Insulin Aspart (Novolog) 0 unit SC [facility]; Protocol Last Admin: 08/25/18 07:55 Dose: 4 units Magnesium Oxide (Mag-Ox) 400 mg PO DAILY [facility] Last Admin: 08/25/18 09:56 Dose: 400 mg Montelukast Sodium (Singulair) 10 mg PO HS [facility] Last Admin: 08/24/18 21:28 Dose: 10 mg Pantoprazole Sodium (Protonix Ec Tab) 40 mg PO DAILY [facility] Last Admin: 08/25/18 09:55 Dose: 40 mg Pneumococcal Polyvalent Vaccine (Pneumovax 23 Vaccine) 0.5 ml IM .ONCE ONE Stop: 08/26/18 10:01 Pregabalin (Lyrica) 75 mg PO BID [facility] Last Admin: 08/25/18 09:56 Dose: 75 mg - Labs Labs: 08/24/18 07:30 08/24/18 07:30 PT 12.3 SECONDS (9.7-12.2) H 08/24/18 07:30 INR 1.1 08/24/18 07:30 APTT 73 SECONDS (21-34) H D 08/24/18 07:30
[2018-08-25 15:57] VITALS: PULSE 108; O2SAT 97
[2018-08-25 17:38] VITALS: BP 111/70
--- NOTE | 2018-08-25 18:10 | CP.PCM.PN ---
Subjective - Date & Time of Evaluation Date of Evaluation: 08/25/18 Time of Evaluation: 18:10 Objective - Vital Signs/Intake and Output Vital Signs (last 24 hours): Temp Pulse Resp BP Pulse Ox 98.1 F 108 H 20 111/70 97 08/25/18 15:10 08/25/18 15:10 08/25/18 15:10 08/25/18 17:37 08/25/18 15:10 Intake and Output: 08/25/18 08/25/18 06:59 18:59 Intake Total 550 Balance 550 - Medications Medications: Current Medications Albuterol Sulfate (Albuterol 0.083% Inhal Sharon (2.5 Mg/3 Ml) Ud) 2.5 mg INH Q4 [facility] Last Admin: 08/25/18 16:20 Dose: 2.5 mg Aspirin (Aspirin) 325 mg PO DAILY [facility] Last Admin: 08/25/18 09:56 Dose: 325 mg Clopidogrel Bisulfate (Plavix) 75 mg PO DAILY [facility] Last Admin: 08/25/18 09:55 Dose: 75 mg Cyclobenzaprine HCl (Flexeril) 10 mg PO DAILY [facility] Last Admin: 08/25/18 09:56 Dose: 10 mg Donepezil HCl (Aricept) 10 mg PO HS [facility] Last Admin: 08/24/18 21:28 Dose: 10 mg Enalapril Maleate (Vasotec) 10 mg PO BID [facility] Last Admin: 08/25/18 17:37 Dose: 10 mg Enoxaparin Sodium (Lovenox) 40 mg SC DAILY [facility] Last Admin: 08/25/18 09:57 Dose: 40 mg Hydromorphone HCl (Dilaudid) 0.5 mg IVP Q8 PRN PRN Reason: Pain, moderate (4-7) Last Admin: 08/25/18 11:12 Dose: 0.5 mg Insulin Aspart (Novolog) 0 unit SC [facility]; Protocol Last Admin: 08/25/18 17:35 Dose: 3 units Magnesium Oxide (Mag-Ox) 400 mg PO DAILY [facility] Last Admin: 08/25/18 09:56 Dose: 400 mg Montelukast Sodium (Singulair) 10 mg PO HS [facility] Last Admin: 08/24/18 21:28 Dose: 10 mg Pantoprazole Sodium (Protonix Ec Tab) 40 mg PO DAILY [facility] Last Admin: 08/25/18 09:55 Dose: 40 mg Pneumococcal Polyvalent Vaccine (Pneumovax 23 Vaccine) 0.5 ml IM .ONCE ONE Stop: 08/26/18 10:01 Pregabalin (Lyrica) 75 mg PO BID [facility] Last Admin: 08/25/18 17:36 Dose: 75 mg - Labs Labs: 08/24/18 07:30 08/24/18 07:30 PT 12.3 SECONDS (9.7-12.2) H 08/24/18 07:30 INR 1.1 08/24/18 07:30 APTT 73 SECONDS (21-34) H D 08/24/18 07:30 Assessment and Plan - Assessment and Plan (Free Text) Assessment: 67 year old female with increased leg pains and difficulty with walking, seen and examined. Cleared by the neurologyst, discussed with DR Anabella Lemons, plan to discharge home today. Advised home care and home physical therapy and follow up in the office in 1 week.
[2018-08-26] MEDS ORDERED: Pneumococcal 23-Valent Vaccine IM ONE (10:00)
== END 2018-08-25 18:25 | disposition home or self-care (01) ==
LOC: C.ER 14:41 → C.9E 18:29 → C.3T 20:03
PROVIDERS: ADMIT Internal Medicine Nephrology; ATTEND Internal Medicine Nephrology
DX: E11.42 Type 2 diabetes mellitus with diabetic polyneuropathy (principal); E11.65 Type 2 diabetes mellitus with hyperglycemia; I10 Essential (primary) hypertension; J44.9 Chronic obstructive pulmonary disease, unspecified; I25.10 Atherosclerotic heart disease of native coronary artery without angina pectoris; E03.9 Hypothyroidism, unspecified; F03.90 Unspecified dementia, unspecified severity, without behavioral disturbance, psychotic disturbance, mood disturbance, and anxiety; G47.30 Sleep apnea, unspecified; E78.5 Hyperlipidemia, unspecified; Z79.4 Long term (current) use of insulin; Z85.6 Personal history of leukemia; Z86.73 Personal history of transient ischemic attack (TIA), and cerebral infarction without residual deficits; Z87.01 Personal history of pneumonia (recurrent); Z90.49 Acquired absence of other specified parts of digestive tract; Z95.5 Presence of coronary angioplasty implant and graft; Z87.891 Personal history of nicotine dependence
CPT/HCPCS: 36415; 71046; 80053; 81001; 82378; 82550; 82948; 83735; 83880; 84443; 84484; 85025; 85378; 85610; 85730; 94640; 97116; 97162; 99285; G0378; G8978; G8979; J1170; J1642; J1650

== ENCOUNTER 2018-09-13 12:57 | Observation (INO) | payer MEDICARE, MEDICAID ==
[2018-09-13 12:58] VITALS: BMI 24.2
[2018-09-13] MEDS ORDERED: Albuterol-Ipratrop 3 mg / 0.5 (3 ml) UD ONE (13:06)
[2018-09-13] MEDS ORDERED: MethylPREDNISolone 40 mg Vial IVP STA (13:33)
[2018-09-13] MEDS ORDERED: Albuterol-Ipratrop 3 mg / 0.5 (3 ml) UD IH STA (13:33)
--- NOTE | 2018-09-13 13:37 | C.PDOC ---
History Of Present Illness 68-year-old female with multiple medical problems presents to the emergency department via EMS from [facility] for asthma exacerbation. Patient reports a cough but denies fever and chills. Patient was given 2 Duoneb and Albuterol by EMS. Patient was audibly wheezing upon arrival, given one Duoneb in ER. Time Seen by Provider: 09/13/18 13:03 Chief Complaint (Nursing): Shortness Of Breath History Per: Patient History/Exam Limitations: no limitations Onset/Duration Of Symptoms: Hrs Current Symptoms Are (Timing): Still Present Associated Symptoms: Other (cough). denies: Fever, Chills, Bloody Cough, Productive Cough Past Medical History Reviewed: Historical Data, Nursing Documentation, Vital Signs Vital Signs: Last Vital Signs Temp 98.0 F 09/13/18 13:10 Pulse 101 H 09/13/18 13:10 Resp 20 09/13/18 13:10 BP 159/95 H 09/13/18 13:10 Pulse Ox 98 09/13/18 13:10 - Medical History PMH: Anxiety, Arthritis, Asthma, Back Problems, Bronchitis, CAD, COPD, Dementia, Diabetes, Gastrointestinal Ulcer, HTN (pt denies), Hyperthyroidism, Hypothyroidism, Migraine, Pneumonia, Sleep Apnea, TIA Denies: Chronic Kidney Disease Surgical History: Appendectomy, Coronary Stent (1) - [facility] Procedures INSERTION OF TOTALLY IMPLANTABLE VASC ACCESS DEVIC (07/27/14) INTRODUCE OF OTH THERAP SUBST INTO RESP TRACT, VIA OPENING (06/19/16) LEFT HEART CARDIAC CATH (07/13/14) LT HEART ANGIOCARDIOGRAM (07/13/14) Family History: States: No Known Family Hx - Social History Hx Tobacco Use: No Hx Alcohol Use: No Hx Substance Use: No - Immunization History Hx Tetanus Toxoid Vaccination: (unk) Hx Influenza Vaccination: No Hx Pneumococcal Vaccination: Yes Review Of Systems Constitutional: Negative for: Fever, Chills Cardiovascular: Negative for: Chest Pain Respiratory: Positive for: Cough, Wheezing Gastrointestinal: Negative for: Nausea, Vomiting, Abdominal Pain, Diarrhea Physical Exam - Physical Exam Appears: Non-toxic, No Acute Distress Skin: Normal Color, Warm, Dry Head: Atraumatic, Normacephalic Eye(s): bilateral: Normal Inspection, PERRL, EOMI Oral Mucosa: Moist Chest: Symmetrical, No Tenderness Cardiovascular: Rhythm Regular, No Murmur Respiratory: Decreased Breath Sounds, No Rales, No Rhonchi, Wheezing (b/l scattered wheezing ), Other (speaking short sentences) Gastrointestinal/Abdominal: Soft, No Tenderness Neurological/Psych: Oriented x3, Normal Speech, Normal Cognition ED Course And Treatment - Laboratory Results Result Diagrams: 09/13/18 13:42 09/13/18 13:42 O2 Sat by Pulse Oximetry: 98 (RA) Pulse Ox Interpretation: Normal Medical Decision Making Medical Decision Making: persistent wheezibng after multip.le nebulizer treamtent and steroids. will admit to Dr Rian Lemons, discussed with him. Plan: CMP CBC XR Albuterol Solu-Medrol 125mg PO Nebulizer Treatment Disposition Discussed With Dr.: Jg Lemons Doctor Will See Patient In The: Hospital Counseled Patient/Family Regarding: Studies Performed - Disposition Disposition: HOSPITALIZED Disposition Time: 15:58 Condition: FAIR Forms: [facility] (Ivorian) - Clinical Impression Clinical Impression: Exacerbation of asthma - PA / PAINT DIPPER / Resident Statement MD/DO has reviewed & agrees with the documentation as recorded. - Scribe Statement The provider has reviewed the documentation as recorded by the Scribe (Richmond James) All medical record entries made by the Scribe were at my direction and p ersonally dictated by me. I have reviewed the chart and agree that the record accurately reflects my personal performance of the history, physical exam, medical decision making, and the department course for this patient. I have also personally directed, reviewed, and agree with the discharge instructions and disposition.
[2018-09-13 14:01] LABS: BASO % 0.4 % (0.0-2.0); HEMOGLOBIN 12.8 g/dL (11.0-16.0); LYMPH # 3.4 K/uL (1.0-4.3); LYMPH % 31.9 % (20.0-40.0); MEAN CELL VOLUME 88.4 fL (81.0-99.0); MEAN CORPUSCULAR HEMOGLOBIN 29.1 pg (27.0-31.0); MEAN PLATELET VOLUME 10.1 fL (7.2-11.7); MONO # 0.8 K/uL (0.0-0.8); MONO % 7.7 % (0.0-10.0); NEUT # 6.4 K/uL (1.8-7.0); NRBC % 0.1 % (0.0-2.0); RBC 4.38 Mil/uL (3.80-5.20); RED CELL DISTRIBUTION WIDTH 12.7 % (11.5-14.5); WHITE BLOOD COUNT 10.7 K/uL (4.8-10.8)
[2018-09-13 14:03] LABS: ALB/GLOB RATIO 1.6 (1.0-2.1); ALBUMIN 3.7 g/dL (3.5-5.0); ALT/SGPT 13 U/L (9-52); AST/SGOT 18 U/L (14-36); BLOOD UREA NITROGEN 10 mg/dL (7-17); CALCIUM 9.1 mg/dl (8.6-10.4); GFR NON-AFRICAN AMERICAN > 60
[2018-09-13] MEDS ORDERED: Albuterol 0.083% Inhal Sol (2.5 mg/3 mL) UD INH STA (14:41)
--- NOTE | 2018-09-13 15:19 | RAD ---
Date of service: 09/13/2018 HISTORY: SOB COMPARISON: Comparison is made with 08/23/2018 TECHNIQUE: Chest PA and lateral views FINDINGS: LUNGS: Prominent reticular opacities noted at the lower lobes. No evidence of new infiltrate or consolidation in the lungs. PLEURA: No significant pleural effusion identified. No pneumothorax apparent. CARDIOVASCULAR: No aortic atherosclerotic calcification present. Normal cardiac size. No pulmonary vascular congestion. OSSEOUS STRUCTURES: No significant abnormalities. VISUALIZED UPPER ABDOMEN: Normal. OTHER FINDINGS: Right-sided Infusaport is again seen in place. IMPRESSION: No evidence of significant interval changes
[2018-09-13] MEDS ORDERED: Albuterol 0.083% Inhal Sol (2.5 mg/3 mL) UD ONE (15:22)
[2018-09-13] MEDS: MethylPREDNISolone 40 mg Vial IVP SCH (17:37)
[2018-09-13] MEDS: Albuterol-Ipratrop 3 mg / 0.5 (3 ml) UD INH SCH ×2 (17:39→19:55)
--- NOTE | 2018-09-13 17:48 | CP.PCM.HP ---
Present on Admission - Present on Admission Any Indicators Present on Admission: No Past Patient History - Infectious Disease Hx of Infectious Diseases: None - Past Medical History & Family History Past Medical History?: Yes - Past Social History Smoking Status: Former Smoker - CARDIAC Hx Hypertension: Yes (pt denies) - PULMONARY Hx Asthma: Yes Hx Bronchitis: Yes Hx Chronic Obstructive Pulmonary Disease (COPD): Yes Hx Pneumonia: Yes Hx Sleep Apnea: Yes - NEUROLOGICAL Hx Dementia: Yes Hx Migraine: Yes Hx Transient Ischemic Attacks (TIA): Yes - HEENT Hx HEENT Problems: Yes Hx Cataracts: Yes - RENAL Hx Chronic Kidney Disease: No - ENDOCRINE/METABOLIC Hx Hyperthyroidism: Yes Hx Hypothyroidism: Yes - HEMATOLOGICAL/ONCOLOGICAL Hx Blood Disorders: Yes Hx Cancer: Yes (blood) Hx Leukemia: Yes Other/Comment: "I have cancer in by blood. They don't know what kind." - INTEGUMENTARY Hx Dermatological Problems: No - MUSCULOSKELETAL/RHEUMATOLOGICAL Hx Arthritis: Yes - GASTROINTESTINAL Other/Comment: Hiatal hernia - GENITOURINARY/GYNECOLOGICAL Hx Genitourinary Disorders: No - PSYCHIATRIC Hx Anxiety: Yes Hx Substance Use: No - SURGICAL HISTORY Hx Appendectomy: Yes Hx Coronary Stent: Yes (1) - ANESTHESIA Hx Anesthesia: Yes Hx Anesthesia Reactions: No Hx Malignant Hyperthermia: No Meds Allergies/Adverse Reactions: Allergies Allergy/AdvReac Type Severity Reaction Status Date / Time No Known Allergies Allergy Verified 09/13/18 13:15 Results - Vital Signs Recent Vital Signs: Last Vital Signs Temp 98.6 F 09/13/18 16:56 Pulse 117 H 09/13/18 16:56 Resp 24 09/13/18 16:56 BP 144/80 09/13/18 16:56 Pulse Ox 95 09/13/18 16:56 - Labs Result Diagrams: 09/13/18 13:42 09/13/18 13:42 Labs: Laboratory Results - last 24 hr 09/13/18 09/13/18 13:42 13:42 WBC 10.7 RBC 4.38 Hgb 12.8 Hct 38.7 MCV 88.4 MCH 29.1 MCHC 33.0 RDW 12.7 Plt Count 238 MPV 10.1 Neut % (Auto) 60.0 Lymph % (Auto) 31.9 [place] % (Auto) 7.7 Eos % (Auto) 0.0 Baso % (Auto) 0.4 Neut # (Auto) 6.4 Lymph # (Auto) 3.4 [place] # (Auto) 0.8 Eos # (Auto) 0.0 Baso # (Auto) 0.0 Sodium 135 Potassium 3.3 L Chloride 99 Carbon Dioxide 31 H Anion Gap 8 L BUN 10 Creatinine 0.4 L Est GFR ( Amer) > 60 Est GFR (Non-Af Amer) > 60 Random Glucose 307 H Calcium 9.1 Total Bilirubin 0.6 AST 18 ALT 13 Alkaline Phosphatase 142 H D Total Protein 6.0 L Albumin 3.7 Globulin 2.3 Albumin/Globulin Ratio 1.6 Assessment & Plan - Assessment and Plan (Free Text) Plan: Patient claims quit smoking 40 years ago kcl posupplement Plan: CMP CBC XR Albuterol Solu-Medrol 40 ivpb q 8 hr Nebulizer Treatment DuoNeb Aspirin Florinef Cymbalta Flexeril KCl Protonix Lovenox Solu-Medrol Plavix Insulin 20 units Fingerstick ACHS Low-dose coverage Enalapril Azithromycin vital reviwed med reviwed labs reviweed
[2018-09-13] MEDS ORDERED: Albuterol HFA 90 mcg/actuation (8 g) IH SCH (18:00)
[2018-09-13] MEDS: (Novolog) Insulin Aspart, Recombinant 100 u/ml 10 ml vial SC SCH ×2 (19:08→21:48)
[2018-09-13] MEDS: Potassium Chloride 20 mEq ER Tab PO SCH (19:15)
[2018-09-13] MEDS: Azithromycin 500 MG in Sodium Chloride 0.9% 250 ML IVPB SCH (19:25)
[2018-09-13] MEDS: cefTRIAXone IV 1 gm in Dextros 50 ML IVPB SCH (21:48)
[2018-09-13] MEDS ORDERED: Potassium Chloride 10 mEq ER Tab PO STA (22:39)
[2018-09-14] MEDS: Albuterol-Ipratrop 3 mg / 0.5 (3 ml) UD INH SCH ×7 (00:26→23:48)
[2018-09-14] MEDS: MethylPREDNISolone 40 mg Vial IVP SCH ×2 (02:10→17:44)
[2018-09-14] MEDS ORDERED: (Novolog) Insulin Aspart, Recombinant 100 u/ml 10 ml vial SC ONE (02:23)
[2018-09-14] MEDS ORDERED: Glucagon Recombinant 1 mg Inj IM PRN (02:23)
[2018-09-14] MEDS ORDERED: Dextrose 50% SYRINGE Inj (50 ml) IV PRN (02:23)
[2018-09-14] MEDS: Albuterol HFA 90 mcg/actuation (8 g) IH SCH ×3 (03:17→19:34)
[2018-09-14] MEDS: Fluticasone-Vilanterol 100/25mcg Diskus INH SCH (07:33)
[2018-09-14] MEDS: (Novolog) Insulin Aspart, Recombinant 100 u/ml 10 ml vial SC SCH ×2 (08:00→17:30)
[2018-09-14] MEDS: Enoxaparin 40 mg Syringe SC SCH (10:23)
[2018-09-14] MEDS: Potassium Chloride 20 mEq ER Tab PO SCH (10:24)
[2018-09-14] MEDS: Magnesium Oxide 400 mg Tab UD PO SCH (10:25)
[2018-09-14] MEDS: cefTRIAXone IV 1 gm in Dextros 50 ML IVPB SCH ×2 (10:34→22:30)
[2018-09-14] MEDS: (Novolin R) Insulin Human Regular 100 units/ml vial SC SCH ×3 (12:32→22:10)
[2018-09-14 17:09] VITALS: RESP 20
--- NOTE | 2018-09-14 18:15 | CP.PCM.PN ---
Subjective - Date & Time of Evaluation Date of Evaluation: 09/14/18 Time of Evaluation: 11:35 - Subjective Subjective: patient examined at bedside no nausea no fever no diarrhea no vomiting denies SOB Objective - Vital Signs/Intake and Output Vital Signs (last 24 hours): Temp Pulse Resp BP Pulse Ox 98.0 F 106 H 20 138/79 96 09/14/18 15:07 09/14/18 15:07 09/14/18 15:07 09/14/18 17:44 09/14/18 15:07 - Medications Medications: Current Medications Albuterol (Ventolin Hfa 90 Mcg/Actuation (8 G)) 2 puff IH RQ6 [facility] Last Admin: 09/14/18 03:17 Dose: Not Given Albuterol/Ipratropium (Duoneb 3 Mg/0.5 Mg (3 Ml) Ud) 3 ml INH RQ4 [facility] Last Admin: 09/14/18 03:18 Dose: 3 ml Aspirin (Aspirin) 325 mg PO DAILY [facility] Last Admin: 09/14/18 10:23 Dose: 325 mg Clopidogrel Bisulfate (Plavix) 75 mg PO DAILY [facility] Last Admin: 09/14/18 10:25 Dose: 75 mg Cyclobenzaprine HCl (Flexeril) 10 mg PO DAILY [facility] Last Admin: 09/14/18 10:24 Dose: 10 mg Dextrose (Dextrose 50% Inj) 0 ml IV STAT PRN; Protocol PRN Reason: Hypoglycemia Protocol Dextrose (Glutose 15) 0 gm PO ONCE PRN; Protocol PRN Reason: Hypoglycemia Protocol Donepezil HCl (Aricept) 10 mg PO DAILY [facility] Last Admin: 09/14/18 13:08 Dose: 10 mg Duloxetine HCl (Cymbalta) 20 mg PO HS [facility] Last Admin: 09/13/18 21:51 Dose: Not Given Enalapril Maleate (Vasotec) 10 mg PO BID [facility] Last Admin: 09/14/18 17:44 Dose: 10 mg Enoxaparin Sodium (Lovenox) 40 mg SC DAILY [facility] Last Admin: 09/14/18 10:23 Dose: 40 mg Fluticasone/Vilanterol (Breo Ellipta 100-25 Mcg Inh) 1 puff INH RQD [facility] Glucagon (Glucagen Diagnostic Kit) 0 mg IM STAT PRN; Protocol PRN Reason: Hypoglycemia Protocol Azithromycin 500 mg/ Sodium (Chloride) 250 mls @ 250 mls/hr IVPB Q24H [facility]; Protocol Last Admin: 09/13/18 19:25 Dose: 250 mls/hr Ceftriaxone Sodium (Rocephin Iv 1 Gm Duplex) 50 mls @ 50 mls/30 min IVPB Q12H [facility]; Protocol Last Admin: 09/14/18 10:34 Dose: 50 mls/30 min Dextrose (Dextrose 5% In Water 1000 Ml) 1,000 mls @ 0 mls/hr IV .Q0M PRN; Protocol PRN Reason: Hypoglycemia Protocol Insulin Aspart (Novolog) 20 unit SC BIDAC [facility] Last Admin: 09/14/18 17:30 Dose: 20 units Insulin Human Regular (Novolin R) 0 unit SC ACHS [facility]; Protocol Last Admin: 09/14/18 17:30 Dose: 6 units Magnesium Oxide (Mag-Ox) 400 mg PO DAILY [facility] Last Admin: 09/14/18 10:25 Dose: 400 mg Methylprednisolone (Solu-Medrol) 40 mg IVP Q12H [facility] Last Admin: 09/14/18 17:44 Dose: 40 mg Montelukast Sodium (Singulair) 10 mg PO HS [facility] Last Admin: 09/13/18 21:53 Dose: 10 mg Potassium Chloride (K-Dur 20 Meq Er Tab) 40 meq PO BRK [facility] Last Admin: 09/14/18 10:24 Dose: 40 meq Pregabalin (Lyrica) 150 mg PO BID [facility] Last Admin: 09/14/18 17:45 Dose: 150 mg Tramadol HCl (Ultram) 50 mg PO TID PRN PRN Reason: Pain, severe (8-10) - Labs Labs: 09/13/18 13:42 09/13/18 13:42 - Constitutional Appears: Well - Head Exam Head Exam: ATRAUMATIC, NORMAL INSPECTION, NORMOCEPHALIC - Eye Exam Eye Exam: EOMI, Normal appearance, PERRL Pupil Exam: NORMAL ACCOMODATION, PERRL - ENT Exam ENT Exam: Mucous Membranes Moist, Normal Exam - Neck Exam Neck Exam: Full ROM, Normal Inspection. absent: Lymphadenopathy - Respiratory Exam Respiratory Exam: Decreased Breath Sounds - Cardiovascular Exam Cardiovascular Exam: REGULAR RHYTHM, +S1, +S2 - GI/Abdominal Exam GI & Abdominal Exam: Soft, Diminished Bowel Sounds - Rectal Exam Rectal Exam: Deferred Assessment and Plan - Assessment and Plan (Free Text) Plan: Aricept Aspirin Azithromycin [place] is done Cymbalta Dextrose DuoNeb Flexeril GlucaGen diagnostic Glutose 15 K-Dur 20 ER tab Lovenox Lyrica Mag-Ox Novolin R NovoLog Plavix Rocephin IV 1 g duplex Singulair Solu-Medrol ultram Vasotec Ventolin hfa 90 mcg/actuation Follow-up with pulmonary Chest x-ray report discussed with the patient as there is no evidence of significant interval changes Patient quit smoking some time ago Patient feels better Patient advised to do pulmonary function test as an outpatientmoderate cmplixty of care doesnot look like chf d/w pt medications, labs and vitals reviewed
--- NOTE | 2018-09-14 18:46 | CP.PCM.CON ---
History of Present Illness - History of Present Illness History of Present Illness: 68 year old female arrived to ED via EMS for shortness of breath. Patient states the shortness of breath began one day ago at [facility] and denies precipitating factors. She states she has an unproductive cough for the same time period. According to prior notes patient was audibly wheezing upon EMS arrival. Patient has multiple medical problems including a history of asthma/bronchitis. Patient states she has a 5 year history of smoking but quit 4 years ago. She follows with Adan Alex, and Dr. Mascorro. She was curious about her blood results because she was recently told by Dr. Schumacher that her "cancer numbers were elevated to 10.3." She later elaborated that she was referring to CEA. PMHx: Asthma, bronchitis, COPD, PNA, HTN, DM, Back pain secondary to slipped disc PSHx: coronary stent, appendectomy Allergies: dust mites, ragweed, fleas, mold, DENIES- pets, environmental exposures Social: former smoker ROS: Patient admits to cough, SOB, back pain, arm pain, leg pain, and a headache. All other systems reviewed and negative PE HEENT: Atraumatic, normocephalic, moist mucous membranes, normal neck inspection Respiratory: expiratory wheezes bilaterally Cardiovascular: regular rate and rhythm GI/abdominal: normoactive bowel sounds Extremities: no pedal edema Neurologic: alert Assessment/Plan: 1. COPD/asthma exacerbation. Potentially Overlap syndrome. Continue current regimen of duonebs, and steriods. 2. Back pain Appropriate anaglesics for back and head pain. Past Patient History - Infectious Disease Hx of Infectious Diseases: None - Past Medical History & Family History Past Medical History?: Yes - Past Social History Smoking Status: Former Smoker - CARDIAC Hx Hypertension: Yes - PULMONARY Hx Chronic Obstructive Pulmonary Disease (COPD): Yes - NEUROLOGICAL Hx Dementia: Yes Hx Migraine: Yes Hx Transient Ischemic Attacks (TIA): Yes - HEENT Hx HEENT Problems: Yes Hx Cataracts: Yes - RENAL Hx Chronic Kidney Disease: No - ENDOCRINE/METABOLIC Hx Diabetes Mellitus Type 2: Yes - HEMATOLOGICAL/ONCOLOGICAL Hx Blood Disorders: Yes Hx Cancer: Yes (blood) Hx Leukemia: Yes Other/Comment: "I have cancer in by blood. They don't know what kind." - INTEGUMENTARY Hx Dermatological Problems: No - MUSCULOSKELETAL/RHEUMATOLOGICAL Hx Arthritis: Yes - GASTROINTESTINAL Other/Comment: Hiatal hernia - GENITOURINARY/GYNECOLOGICAL Hx Genitourinary Disorders: No - PSYCHIATRIC Hx Anxiety: Yes Hx Substance Use: No - SURGICAL HISTORY Hx Appendectomy: Yes Hx Coronary Stent: Yes (1) - ANESTHESIA Hx Anesthesia: Yes Hx Anesthesia Reactions: No Hx Malignant Hyperthermia: No Meds Allergies/Adverse Reactions: Allergies Allergy/AdvReac Type Severity Reaction Status Date / Time No Known Allergies Allergy Verified 09/13/18 13:15 - Medications Medications: Current Medications Albuterol (Ventolin Hfa 90 Mcg/Actuation (8 G)) 2 puff IH RQ6 [facility] Last Admin: 09/14/18 03:17 Dose: Not Given Albuterol/Ipratropium (Duoneb 3 Mg/0.5 Mg (3 Ml) Ud) 3 ml INH RQ4 [facility] Last Admin: 09/14/18 03:18 Dose: 3 ml Aspirin (Aspirin) 325 mg PO DAILY [facility] Last Admin: 09/14/18 10:23 Dose: 325 mg Clopidogrel Bisulfate (Plavix) 75 mg PO DAILY [facility] Last Admin: 09/14/18 10:25 Dose: 75 mg Cyclobenzaprine HCl (Flexeril) 10 mg PO DAILY [facility] Last Admin: 09/14/18 10:24 Dose: 10 mg Dextrose (Dextrose 50% Inj) 0 ml IV STAT PRN; Protocol PRN Reason: Hypoglycemia Protocol Dextrose (Glutose 15) 0 gm PO ONCE PRN; Protocol PRN Reason: Hypoglycemia Protocol Donepezil HCl (Aricept) 10 mg PO DAILY [facility] Last Admin: 09/14/18 13:08 Dose: 10 mg Duloxetine HCl (Cymbalta) 20 mg PO HS [facility] Last Admin: 09/13/18 21:51 Dose: Not Given Enalapril Maleate (Vasotec) 10 mg PO BID [facility] Last Admin: 09/14/18 17:44 Dose: 10 mg Enoxaparin Sodium (Lovenox) 40 mg SC DAILY [facility] Last Admin: 09/14/18 10:23 Dose: 40 mg Fluticasone/Vilanterol (Breo Ellipta 100-25 Mcg Inh) 1 puff INH RQD [facility] Glucagon (Glucagen Diagnostic Kit) 0 mg IM STAT PRN; Protocol PRN Reason: Hypoglycemia Protocol Azithromycin 500 mg/ Sodium (Chloride) 250 mls @ 250 mls/hr IVPB Q24H [facility]; Protocol Last Admin: 09/13/18 19:25 Dose: 250 mls/hr Ceftriaxone Sodium (Rocephin Iv 1 Gm Duplex) 50 mls @ 50 mls/30 min IVPB Q12H [facility]; Protocol Last Admin: 09/14/18 10:34 Dose: 50 mls/30 min Dextrose (Dextrose 5% In Water 1000 Ml) 1,000 mls @ 0 mls/hr IV .Q0M PRN; Protocol PRN Reason: Hypoglycemia Protocol Insulin Aspart (Novolog) 20 unit SC BIDAC [facility] Last Admin: 09/14/18 17:30 Dose: 20 units Insulin Human Regular (Novolin R) 0 unit SC ACHS [facility]; Protocol Last Admin: 09/14/18 17:30 Dose: 6 units Magnesium Oxide (Mag-Ox) 400 mg PO DAILY [facility] Last Admin: 09/14/18 10:25 Dose: 400 mg Methylprednisolone (Solu-Medrol) 40 mg IVP Q12H [facility] Last Admin: 09/14/18 17:44 Dose: 40 mg Montelukast Sodium (Singulair) 10 mg PO HS [facility] Last Admin: 09/13/18 21:53 Dose: 10 mg Potassium Chloride (K-Dur 20 Meq Er Tab) 40 meq PO BRK [facility] Last Admin: 09/14/18 10:24 Dose: 40 meq Pregabalin (Lyrica) 150 mg PO BID [facility] Last Admin: 09/14/18 17:45 Dose: 150 mg Tramadol HCl (Ultram) 50 mg PO TID PRN PRN Reason: Pain, severe (8-10) Results - Vital Signs Recent Vital Signs: Last Vital Signs Temp 98.0 F 09/14/18 15:07 Pulse 106 H 09/14/18 15:07 Resp 20 09/14/18 15:07 BP 138/79 09/14/18 17:44 Pulse Ox 96 09/14/18 15:07 - Labs Result Diagrams: 09/13/18 13:42 09/13/18 13:42 Labs: Laboratory Results - last 24 hr 09/13/18 09/14/18 09/14/18 21:39 01:52 11:42 POC Glucose (mg/dL) > 500 H* 438 H* 267 H
[2018-09-14] MEDS: Azithromycin 500 MG in Sodium Chloride 0.9% 250 ML IVPB SCH (19:22)
[2018-09-14] MEDS ORDERED: HYDROmorphone 1 mg/ml ISec IVP ONE (20:45)
[2018-09-15] MEDS: Albuterol-Ipratrop 3 mg / 0.5 (3 ml) UD INH SCH ×4 (03:10→16:12)
[2018-09-15] MEDS: Albuterol HFA 90 mcg/actuation (8 g) IH SCH (03:11)
[2018-09-15] MEDS: MethylPREDNISolone 40 mg Vial IVP SCH ×2 (05:35→18:02)
[2018-09-15] MEDS: (Novolin R) Insulin Human Regular 100 units/ml vial SC SCH ×3 (07:35→17:30)
[2018-09-15] MEDS: Fluticasone-Vilanterol 100/25mcg Diskus INH SCH (07:38)
[2018-09-15] MEDS: Potassium Chloride 20 mEq ER Tab PO SCH (08:42)
[2018-09-15] MEDS: (Novolog) Insulin Aspart, Recombinant 100 u/ml 10 ml vial SC SCH ×2 (08:43→17:30)
[2018-09-15] MEDS: Magnesium Oxide 400 mg Tab UD PO SCH (10:51)
[2018-09-15] MEDS: cefTRIAXone IV 1 gm in Dextros 50 ML IVPB SCH (12:06)
[2018-09-15] MEDS: Enoxaparin 40 mg Syringe SC SCH (12:06)
[2018-09-15] MEDS ORDERED: Oxycodone/Acetaminophen 5/325 mg Tab PO ONE (14:00)
--- NOTE | 2018-09-15 15:19 | CP.PCM.PN ---
Subjective - Date & Time of Evaluation Date of Evaluation: 09/15/18 Time of Evaluation: 13:00 - Subjective Subjective: Patient seen at bedside. Sitting up comfortably in chair. She states her breathing has improved markedly from yesterday. She still complains of the arm, legs, and back pain however she no longer states she has a headache. Patient inquired about her "cancer numbers" again this morning. Patient also asked for second opinion on her cancer diagnosis. ROS: Patient admits to cough, SOB, back pain, arm pain, leg pain. All other systems reviewed and negative PE HEENT: Atraumatic, normocephalic, moist mucous membranes, normal neck inspection Respiratory: expiratory wheezes bilaterally (much improved from day before) Cardiovascular: regular rate and rhythm GI/abdominal: normoactive bowel sounds Extremities: no pedal edema Neurologic: alert Assessment/Plan: 1. COPD/asthma exacerbation. Potentially Overlap syndrome. Continue current regimen of duonebs, and steriods. 2. Back pain Appropriate anaglesics for back and head pain. Objective - Vital Signs/Intake and Output Vital Signs (last 24 hours): Temp Pulse Resp BP Pulse Ox 97.8 F 89 20 134/76 95 09/15/18 07:00 09/15/18 07:00 09/15/18 07:00 09/15/18 10:51 09/15/18 07:00 Intake and Output: 09/15/18 09/15/18 06:59 18:59 Intake Total 300 Balance 300 - Medications Medications: Current Medications Albuterol (Ventolin Hfa 90 Mcg/Actuation (8 G)) 2 puff IH RQ6 [facility] Last Admin: 09/15/18 03:11 Dose: Not Given Albuterol/Ipratropium (Duoneb 3 Mg/0.5 Mg (3 Ml) Ud) 3 ml INH RQ4 [facility] Last Admin: 09/15/18 11:12 Dose: 3 ml Aspirin (Aspirin) 325 mg PO DAILY [facility] Last Admin: 09/15/18 10:50 Dose: 325 mg Clopidogrel Bisulfate (Plavix) 75 mg PO DAILY [facility] Last Admin: 09/15/18 10:50 Dose: 75 mg Cyclobenzaprine HCl (Flexeril) 10 mg PO DAILY [facility] Last Admin: 09/15/18 10:50 Dose: 10 mg Dextrose (Dextrose 50% Inj) 0 ml IV STAT PRN; Protocol PRN Reason: Hypoglycemia Protocol Dextrose (Glutose 15) 0 gm PO ONCE PRN; Protocol PRN Reason: Hypoglycemia Protocol Donepezil HCl (Aricept) 10 mg PO DAILY [facility] Last Admin: 09/15/18 12:05 Dose: 10 mg Duloxetine HCl (Cymbalta) 20 mg PO HS [facility] Last Admin: 09/14/18 22:30 Dose: Not Given Enalapril Maleate (Vasotec) 10 mg PO BID [facility] Last Admin: 09/15/18 10:51 Dose: 10 mg Enoxaparin Sodium (Lovenox) 40 mg SC DAILY [facility] Last Admin: 09/15/18 12:06 Dose: 40 mg Fluticasone/Vilanterol (Breo Ellipta 100-25 Mcg Inh) 1 puff INH RQD [facility] Last Admin: 09/15/18 07:38 Dose: 1 puff Glucagon (Glucagen Diagnostic Kit) 0 mg IM STAT PRN; Protocol PRN Reason: Hypoglycemia Protocol Azithromycin 500 mg/ Sodium (Chloride) 250 mls @ 250 mls/hr IVPB Q24H [facility]; Protocol Last Admin: 09/14/18 19:22 Dose: 250 mls/hr Ceftriaxone Sodium (Rocephin Iv 1 Gm Duplex) 50 mls @ 50 mls/30 min IVPB Q12H [facility]; Protocol Last Admin: 09/15/18 12:06 Dose: 50 mls/30 min Dextrose (Dextrose 5% In Water 1000 Ml) 1,000 mls @ 0 mls/hr IV .Q0M PRN; Protocol PRN Reason: Hypoglycemia Protocol Insulin Aspart (Novolog) 20 unit SC BIDAC [facility] Last Admin: 09/15/18 08:43 Dose: 20 units Insulin Human Regular (Novolin R) 0 unit SC ACHS [facility]; Protocol Last Admin: 09/15/18 12:27 Dose: 5 units Magnesium Oxide (Mag-Ox) 400 mg PO DAILY [facility] Last Admin: 09/15/18 10:51 Dose: 400 mg Methylprednisolone (Solu-Medrol) 40 mg IVP Q12H [facility] Last Admin: 09/15/18 05:35 Dose: 40 mg Montelukast Sodium (Singulair) 10 mg PO HS [facility] Last Admin: 09/14/18 22:30 Dose: 10 mg Potassium Chloride (K-Dur 20 Meq Er Tab) 40 meq PO BRK [facility] Last Admin: 09/15/18 08:42 Dose: 40 meq Pregabalin (Lyrica) 150 mg PO BID [facility] Last Admin: 09/15/18 10:49 Dose: 150 mg Tramadol HCl (Ultram) 50 mg PO TID PRN PRN Reason: Pain, severe (8-10) Last Admin: 09/14/18 19:30 Dose: 50 mg - Labs Labs: 09/13/18 13:42 09/13/18 13:42
[2018-09-15 16:50] VITALS: BP 153/88; PULSE 94; TEMP 98.6; O2SAT 96
--- NOTE | 2018-09-15 17:09 | CP.PCM.PN ---
Subjective - Date & Time of Evaluation Date of Evaluation: 09/15/18 Time of Evaluation: 11:00 - Subjective Subjective: alert, orientedx3, ambulatory with walker, NAD. Objective - Vital Signs/Intake and Output Vital Signs (last 24 hours): Temp Pulse Resp BP Pulse Ox 98.6 F 94 H 20 153/88 H 96 09/15/18 16:01 09/15/18 16:01 09/15/18 16:01 09/15/18 16:01 09/15/18 16:01 Intake and Output: 09/15/18 09/15/18 06:59 18:59 Intake Total 300 Balance 300 - Medications Medications: Current Medications Albuterol (Ventolin Hfa 90 Mcg/Actuation (8 G)) 2 puff IH RQ6 [facility] Last Admin: 09/15/18 03:11 Dose: Not Given Albuterol/Ipratropium (Duoneb 3 Mg/0.5 Mg (3 Ml) Ud) 3 ml INH RQ4 [facility] Last Admin: 09/15/18 16:12 Dose: 3 ml Aspirin (Aspirin) 325 mg PO DAILY [facility] Last Admin: 09/15/18 10:50 Dose: 325 mg Clopidogrel Bisulfate (Plavix) 75 mg PO DAILY [facility] Last Admin: 09/15/18 10:50 Dose: 75 mg Cyclobenzaprine HCl (Flexeril) 10 mg PO DAILY [facility] Last Admin: 09/15/18 10:50 Dose: 10 mg Dextrose (Dextrose 50% Inj) 0 ml IV STAT PRN; Protocol PRN Reason: Hypoglycemia Protocol Dextrose (Glutose 15) 0 gm PO ONCE PRN; Protocol PRN Reason: Hypoglycemia Protocol Donepezil HCl (Aricept) 10 mg PO DAILY [facility] Last Admin: 09/15/18 12:05 Dose: 10 mg Duloxetine HCl (Cymbalta) 20 mg PO HS [facility] Last Admin: 09/14/18 22:30 Dose: Not Given Enalapril Maleate (Vasotec) 10 mg PO BID [facility] Last Admin: 09/15/18 10:51 Dose: 10 mg Enoxaparin Sodium (Lovenox) 40 mg SC DAILY [facility] Last Admin: 09/15/18 12:06 Dose: 40 mg Famotidine (Pepcid) 20 mg PO BID [facility] Fluticasone/Vilanterol (Breo Ellipta 100-25 Mcg Inh) 1 puff INH RQD [facility] Last Admin: 09/15/18 07:38 Dose: 1 puff Glucagon (Glucagen Diagnostic Kit) 0 mg IM STAT PRN; Protocol PRN Reason: Hypoglycemia Protocol Azithromycin 500 mg/ Sodium (Chloride) 250 mls @ 250 mls/hr IVPB Q24H [facility]; Protocol Last Admin: 09/14/18 19:22 Dose: 250 mls/hr Ceftriaxone Sodium (Rocephin Iv 1 Gm Duplex) 50 mls @ 50 mls/30 min IVPB Q12H [facility]; Protocol Last Admin: 09/15/18 12:06 Dose: 50 mls/30 min Dextrose (Dextrose 5% In Water 1000 Ml) 1,000 mls @ 0 mls/hr IV .Q0M PRN; Protocol PRN Reason: Hypoglycemia Protocol Insulin Aspart (Novolog) 20 unit SC BIDAC [facility] Last Admin: 09/15/18 08:43 Dose: 20 units Insulin Human Regular (Novolin R) 0 unit SC ACHS [facility]; Protocol Last Admin: 09/15/18 12:27 Dose: 5 units Magnesium Oxide (Mag-Ox) 400 mg PO DAILY [facility] Last Admin: 09/15/18 10:51 Dose: 400 mg Methylprednisolone (Solu-Medrol) 40 mg IVP Q12H [facility] Last Admin: 09/15/18 05:35 Dose: 40 mg Montelukast Sodium (Singulair) 10 mg PO HS [facility] Last Admin: 09/14/18 22:30 Dose: 10 mg Potassium Chloride (K-Dur 20 Meq Er Tab) 40 meq PO BRK [facility] Last Admin: 09/15/18 08:42 Dose: 40 meq Pregabalin (Lyrica) 150 mg PO BID [facility] Last Admin: 09/15/18 10:49 Dose: 150 mg Tramadol HCl (Ultram) 50 mg PO TID PRN PRN Reason: Pain, severe (8-10) Last Admin: 09/14/18 19:30 Dose: 50 mg - Labs Labs: 09/13/18 13:42 09/13/18 13:42 Assessment and Plan - Assessment and Plan (Free Text) Assessment: 68 year old female admitted with asthma exacerbation chronic neuropathic pain, seen and examined. Alert and orientedx3, ambulating with walker. Discussed with DR Anabella Lemons, plan to discharge home today, advised to follow up in the office in 1 week.
--- NOTE | 2018-09-15 18:28 | CP.PCM.DIS ---
Provider - Provider Date of Admission: 09/13/18 16:01 Attending physician: Felix Lemons MD Primary care physician: janie blanton Consults: 09/13/18 17:49 Pulmonology Consult Routine Comment: Consulting Provider: Willi Garrett Consulting Physician: Willi Garrett Reason for Consult: asthma exac. Time Spent in preparation of Discharge (in minutes): 20 Hospital Course - Lab Results Lab Results: Most Recent Lab Values WBC 10.7 K/uL (4.8-10.8) 09/13/18 13:42 RBC 4.38 Mil/uL (3.80-5.20) 09/13/18 13:42 Hgb 12.8 g/dL (11.0-16.0) 09/13/18 13:42 Hct 38.7 % (34.0-47.0) 09/13/18 13:42 MCV 88.4 fL (81.0-99.0) 09/13/18 13:42 MCH 29.1 pg (27.0-31.0) 09/13/18 13:42 MCHC 33.0 g/dL (33.0-37.0) 09/13/18 13:42 RDW 12.7 % (11.5-14.5) 09/13/18 13:42 Plt Count 238 K/uL (130-400) 09/13/18 13:42 MPV 10.1 fL (7.2-11.7) 09/13/18 13:42 Neut % (Auto) 60.0 % (50.0-75.0) 09/13/18 13:42 Lymph % (Auto) 31.9 % (20.0-40.0) 09/13/18 13:42 [place] % (Auto) 7.7 % (0.0-10.0) 09/13/18 13:42 Eos % (Auto) 0.0 % (0.0-4.0) 09/13/18 13:42 Baso % (Auto) 0.4 % (0.0-2.0) 09/13/18 13:42 Neut # (Auto) 6.4 K/uL (1.8-7.0) 09/13/18 13:42 Lymph # (Auto) 3.4 K/uL (1.0-4.3) 09/13/18 13:42 [place] # (Auto) 0.8 K/uL (0.0-0.8) 09/13/18 13:42 Eos # (Auto) 0.0 K/uL (0.0-0.7) 09/13/18 13:42 Baso # (Auto) 0.0 K/uL (0.0-0.2) 09/13/18 13:42 Sodium 135 mmol/L (132-148) 09/13/18 13:42 Potassium 3.3 mmol/L (3.6-5.2) L 09/13/18 13:42 Chloride 99 mmol/L (98-107) 09/13/18 13:42 Carbon Dioxide 31 mmol/L (22-30) H 09/13/18 13:42 Anion Gap 8 (10-20) L 09/13/18 13:42 BUN 10 mg/dL (7-17) 09/13/18 13:42 Creatinine 0.4 mg/dL (0.7-1.2) L 09/13/18 13:42 Est GFR ( Amer) > 60 09/13/18 13:42 Est GFR (Non-Af Amer) > 60 09/13/18 13:42 POC Glucose (mg/dL) 267 mg/dL (65-110) H 09/14/18 11:42 Random Glucose 307 mg/dL (65-105) H 09/13/18 13:42 Calcium 9.1 mg/dl (8.6-10.4) 09/13/18 13:42 Total Bilirubin 0.6 mg/dL (0.2-1.3) 09/13/18 13:42 AST 18 U/L (14-36) 09/13/18 13:42 ALT 13 U/L (9-52) 09/13/18 13:42 Alkaline Phosphatase 142 U/L (38-126) H D 09/13/18 13:42 Total Protein 6.0 g/dL (6.3-8.3) L 09/13/18 13:42 Albumin 3.7 g/dL (3.5-5.0) 09/13/18 13:42 Globulin 2.3 gm/dL (2.2-3.9) 09/13/18 13:42 Albumin/Globulin Ratio 1.6 (1.0-2.1) 09/13/18 13:42 - Hospital Course Hospital Course: Is Developmental for discharge today Continue donepezil Continue aspirin Fluticasone Cymbalta Combivent Flexeril Magnesium Lydick as an outpatient Same insulin that she is to take it Augmentin Singulair P.o. steroid and tapering patient admitted with a history of possible asthma patient claims that she does not smoke and patient felt shortness of breath which patient felt better patient is a private patient of Dr. Rowan within patient advised to go see her within 48 hours if get worse patient advised to come back to the emergency room patient advised to stay away from the allergies that she has it from the dust mites ragweed fluid mood as patient has multiple allergies patient is a former smoker complaints encourage not to smoke Discharge Exam - Head Exam Head Exam: ATRAUMATIC, NORMAL INSPECTION, NORMOCEPHALIC - Eye Exam Eye Exam: EOMI, Normal appearance, PERRL Pupil Exam: NORMAL ACCOMODATION, PERRL - Respiratory Exam Respiratory Exam: Decreased Breath Sounds - Cardiovascular Exam Cardiovascular Exam: REGULAR RHYTHM, +S1, +S2 - GI/Abdominal Exam GI & Abdominal Exam: Diminished Bowel Sounds, Soft - Rectal Exam Rectal Exam: Deferred Discharge Plan - Discharge Medications Prescriptions: Famotidine [Pepcid] 20 mg PO BID #60 tab predniSONE [Prednisone] 10 mg PO DAILY #10 tab Azithromycin [Zithromax] 500 mg PO DAILY #5 tablet - Follow Up Plan Condition: FAIR Disposition: HOME/ ROUTINE Instructions: Azithromycin (Systemic), Asthma, Adult (DC), Avoiding Asthma Triggers, Prednisone Additional Instructions: follow up with PMD in 1 week zithromax 500mg po daily x5 days prednisone tapering dose SN eval with Daija SOTO Referrals: Willi Garrett MD [Staff Provider] - Jg Lemons MD [Staff Provider] -
--- NOTE | 2018-09-15 20:47 | CARD ---
APPROVED REPORT Date of service: 09/13/2018 EKG Measurement Heart [id number] <Conclusion> Sinus tachycardia Possible Left atrial enlargement Left ventricular hypertrophy Abnormal ECG
== END 2018-09-15 19:40 | disposition home or self-care (01) ==
LOC: C.ER 12:57 → C.9E 16:01 → C.6T 16:24
PROVIDERS: ADMIT Internal Medicine Nephrology; ATTEND Internal Medicine Nephrology
DX: J45.901 Unspecified asthma with (acute) exacerbation (principal); Z87.891 Personal history of nicotine dependence; J44.1 Chronic obstructive pulmonary disease with (acute) exacerbation; M54.9 Dorsalgia, unspecified; E03.9 Hypothyroidism, unspecified; E11.9 Type 2 diabetes mellitus without complications; F03.90 Unspecified dementia, unspecified severity, without behavioral disturbance, psychotic disturbance, mood disturbance, and anxiety; G47.30 Sleep apnea, unspecified; I10 Essential (primary) hypertension; Z85.6 Personal history of leukemia; Z86.73 Personal history of transient ischemic attack (TIA), and cerebral infarction without residual deficits; Z87.01 Personal history of pneumonia (recurrent); Z95.5 Presence of coronary angioplasty implant and graft
CPT/HCPCS: 71046; 80053; 82948; 85025; 93005; 94640; 96374; 97116; 97162; 99285; G0378; G8978; G8979; J0456; J0696; J1170; J1642; J1650; J2920; J7050